=== PATIENT | male | born 1980 | race Caucasian/White ===

== ENCOUNTER 2016-06-29 10:53 | Emergency (ER) | payer SELFPAY ==
[~2016-06-29] VITALS: Ht 182.9 cm; Wt 73.2 kg
[~2016-06-29 10:53] MED LIST: ATIVAN 0.50.5 MG/TAB PO; PHENERGAN 25 TA25 MG PO; SUBOXONE 8 MG-21 TAB PO; SUBOXONE 8 MG-21 TAB SL; [UNRECOGNIZED DRUG - OTHER]
[2016-06-29 10:57] VITALS: BP 135/103; PULSE 120; TEMP 98.3
== END 2016-06-29 13:37 | disposition left against medical advice (07) ==
LOC: COL.ER 10:53
DX: F19.159 Other psychoactive substance abuse with psychoactive substance-induced psychotic disorder, unspecified (principal); F10.159 Alcohol abuse with alcohol-induced psychotic disorder, unspecified; Y90.9 Presence of alcohol in blood, level not specified

== ENCOUNTER → 2020-11-25 | Emergency (ER) | payer SELFPAY ==
[~2020-11-25] MED LIST changes: +LIBRIUM 25M25 MG/CAP PO; +PRILOSEC 20MG20 MG PO
== END ==
LOC: COL.ER 18:10
DX: Z13.39 Encounter for screening examination for other mental health and behavioral disorders (principal)

== ENCOUNTER 2020-12-01 12:50 | Emergency (ER) | payer SELFPAY ==
[~2020-12-01] VITALS: Ht 182.9 cm; Wt 64.5 kg
[~2020-12-01 12:50] MED LIST changes: -LIBRIUM 25M25 MG/CAP PO; -PRILOSEC 20MG20 MG PO
[2020-12-01 13:26] LABS: BASO # 0.1 (0.0-0.2); BASO % 1.1 % (0.0-2.0); EOS # 0.2 (0.0-0.7); EOS % 4.4 % (0-4.0); GRAN # 2.1 (1.4-6.5); GRAN % 47.1 % (42.2-75.2); HEMATOCRIT 42.6 % (42.0-52.0); HEMOGLOBIN 14.5 g/dl (13.5-18.0); LYMPH # 1.7 (1.2-3.4); LYMPH % 37.9 % (20.0-51.0); MEAN CELL VOLUME 96 fl (80.0-100.0); MEAN CORPUSCULAR HEMOGLOBIN 33 pg (27.0-31.0); MEAN CORPUSCULAR HGB CONC 34 g/dl (33.0-37.0); MEAN PLATELET VOLUME 10.3 fl (7.4-10.4); MONO # 0.4 (0.1-0.6); MONO % 9.3 % (1.7-9.3); PLATELET COUNT 100 K/mm3 (130-400); RED BLOOD COUNT 4.43 M/mm3 (4.20-5.60); REDCELL DISTRIBUTION WIDTH-CV 12.4 % (11.5-14.5)
[2020-12-01 14:04] LABS: ALBUMIN 4.1 gm/dL (3.5-5.0); BILIRUBIN,TOTAL 0.9 mg/dL (0.0-1.0); CALCIUM 8.3 mg/dL (8.4-10.2); CREATININE, serum 0.64 (0.66-1.25); POTASSIUM 3.8 mmol/L (3.4-5.0); TOTAL PROTEIN 7.1 gm/dL (6.4-8.2)
[2020-12-01] MEDS ORDERED: LIBRIUM 25M25 MG/CAP PO (15:32)
[2020-12-01 17:28] LABS: COLLECTION METHOD CLEAN CATCH
[2020-12-01 17:35] LABS: PH 7 (5-8); SQUAMOUS EPITHELIAL None Seen /hpf; URINE APPEARANCE Clear; URINE BACTERIA None Seen /hpf; URINE BILIRUBIN Negative (NEGATIVE); URINE BLOOD Negative (NEGATIVE); URINE COLOR Yellow; URINE GLUCOSE Negative (NEGATIVE); URINE KETONE Negative (NEGATIVE); URINE LEUKOCYTE ESTERASE Negative (NEGATIVE); URINE NITRATE Negative (NEGATIVE); URINE PROTEIN(semi-quant) Negative (NEGATIVE); URINE RBC 0-2 /hpf; URINE UROBILINOGEN Negative (NEGATIVE)
[2020-12-01 17:45] LABS: TRICYCLIC ANTIDEPRESS URINE NEGATIVE
[2020-12-02 03:45] VITALS: BP 131/99; PULSE 98; TEMP 96.8
== END 2020-12-02 03:41 | disposition home or self-care (01) ==
LOC: COL.ER 12:50
PROVIDERS: Nurse Practitioner Primary Care
DX: F10.239 Alcohol dependence with withdrawal, unspecified (principal); F17.210 Nicotine dependence, cigarettes, uncomplicated; Y90.8 Blood alcohol level of 240 mg/100 ml or more
CPT/HCPCS: C9113; J2060; J7030

== ENCOUNTER 2021-03-17 15:20 | Emergency (ER) | payer OTHER ==
[~2021-03-17] VITALS: Ht 182.9 cm; Wt 65.9 kg
[~2021-03-17 15:20] MED LIST changes: +LIBRIUM 25M25 MG/CAP PO
[2021-03-17] MEDS ORDERED: PRILOSEC 20MG20 MG PO (15:51)
[2021-03-17 15:52] VITALS: TEMP 97.3
[2021-03-17 17:03] LABS: BASO # 0.1 (0.0-0.2); EOS # 0.3 (0.0-0.7); EOS % 5.2 % (0-4.0); GRAN # 2.2 (1.4-6.5); GRAN % 46.4 % (42.2-75.2); HEMATOCRIT 41.5 % (42.0-52.0); HEMOGLOBIN 14.4 g/dl (13.5-18.0); LYMPH # 1.8 (1.2-3.4); LYMPH % 37.4 % (20.0-51.0); MEAN CELL VOLUME 94 fl (80.0-100.0); MEAN CORPUSCULAR HEMOGLOBIN 33 pg (27.0-31.0); MEAN CORPUSCULAR HGB CONC 35 g/dl (33.0-37.0); MEAN PLATELET VOLUME 10.4 fl (7.4-10.4); MONO # 0.5 (0.1-0.6); MONO % 9.8 % (1.7-9.3); PLATELET COUNT 128 K/mm3 (130-400); RED BLOOD COUNT 4.42 M/mm3 (4.20-5.60); REDCELL DISTRIBUTION WIDTH-CV 12.1 % (11.5-14.5)
[2021-03-17 17:11] LABS: ALANINE AMINOTRANSFERASE 47 U/L (4-49); ALBUMIN 4.4 gm/dL (3.5-5.0); ALKALINE PHOSPHATASE 63 U/L (50-136); ANION GAP 10 mmol/L (7-16); AST,SGOT 96 U/L (15-37); BILIRUBIN,TOTAL 0.4 mg/dL (0.0-1.0); BLOOD UREA NITROGEN 13 mg/dL (9-20); C-REACTIVE PROTEIN < 0.5 mg/dL (0.0-0.9); CALCIUM 8.5 mg/dL (8.4-10.2); CARBON DIOXIDE 27 mmol/L (22-30); CHLORIDE 106 mmol/L (98-107); CREATININE, serum 1.06 (0.66-1.25); GLUCOSE 112 mg/dL (74-106); LIPASE 407 U/L (23-300); POTASSIUM 3.5 mmol/L (3.4-5.0); SODIUM 142 mmol/L (137-145); TOTAL PROTEIN 7.2 gm/dL (6.4-8.2)
[2021-03-17 19:14] LABS: COLLECTION METHOD CLEAN CATCH
[2021-03-17 19:22] LABS: PH 7 (5-8); SQUAMOUS EPITHELIAL None Seen /hpf; URINE APPEARANCE Cloudy; URINE BACTERIA Rare /hpf; URINE BILIRUBIN Negative (NEGATIVE); URINE BLOOD Negative (NEGATIVE); URINE COLOR Yellow; URINE GLUCOSE Negative (NEGATIVE); URINE KETONE Negative (NEGATIVE); URINE LEUKOCYTE ESTERASE Negative (NEGATIVE); URINE NITRATE Negative (NEGATIVE); URINE PROTEIN(semi-quant) Negative (NEGATIVE); URINE RBC 0-2 /hpf; URINE UROBILINOGEN Negative (NEGATIVE)
[2021-03-17 21:14] VITALS: BP 125/88; PULSE 74
== END 2021-03-17 21:16 | disposition home or self-care (01) ==
LOC: COL.ER 15:20
PROVIDERS: Nurse Practitioner
DX: F10.10 Alcohol abuse, uncomplicated (principal); F17.200 Nicotine dependence, unspecified, uncomplicated; Y90.8 Blood alcohol level of 240 mg/100 ml or more
CPT/HCPCS: J2060; J3411; J3475; J7030; Q9967

== ENCOUNTER 2021-10-13 09:13 | Emergency (ER) | payer SELFPAY ==
[~2021-10-13] VITALS: Ht 182.9 cm; Wt 66.4 kg
[~2021-10-13 09:13] MED LIST changes: +PRILOSEC 20MG20 MG PO
[2021-10-13 09:14] VITALS: TEMP 98.2
[2021-10-13 10:05] LABS: BASO # 0.1 K/mm3 (0.0-0.2); BASO % 2.5 % (0.0-2.0); EOS # 0.2 K/mm3 (0.0-0.7); EOS % 4.8 % (0.0-4.0); GRAN % 45.1 % (42.2-75.2); HEMATOCRIT 43.8 % (42.0-52.0); HEMOGLOBIN 15.1 g/dl (13.5-18.0); LYMPH # 1.5 K/mm3 (1.2-3.4); LYMPH % 33.5 % (20.0-51.0); MEAN CELL VOLUME 95 fl (80.0-100.0); MEAN CORPUSCULAR HEMOGLOBIN 33 pg (27-31); MEAN CORPUSCULAR HGB CONC 35 g/dl (33.0-37.0); MEAN PLATELET VOLUME 10.5 fl (7.4-10.4); MONO # 0.6 K/mm3 (0.1-0.6); MONO % 13.9 % (1.7-9.3); PLATELET COUNT 117 K/mm3 (130-400); RED BLOOD COUNT 4.61 M/mm3 (4.20-5.60)
[2021-10-13 10:13] LABS: ALBUMIN 4.6 gm/dL (3.5-5.0); BILIRUBIN,TOTAL 0.6 mg/dL (0.2-1.2); CALCIUM 8.7 mg/dL (8.4-10.2); CREATININE, serum 0.82 mg/dL (0.72-1.25); POTASSIUM 3.6 mmol/L (3.5-4.5)
[2021-10-13 12:56] LABS: COLLECTION METHOD CLEAN CATCH
[2021-10-13 13:12] LABS: AMORPHOUS CRYSTAL Present (NOT PRESENT); MUCOUS Present (NOT PRESENT); PH 7 (5-8); SQUAMOUS EPITHELIAL None Seen /hpf (0-10); URINE APPEARANCE Hazy (CLEAR/HAZY); URINE BACTERIA None Seen /hpf (NONE SEEN); URINE BILIRUBIN Negative (NEGATIVE); URINE BLOOD Negative (NEGATIVE); URINE COLOR Yellow (YELLOW); URINE GLUCOSE Negative (NEGATIVE); URINE KETONE Negative (NEGATIVE); URINE LEUKOCYTE ESTERASE Negative (NEGATIVE); URINE NITRATE Negative (NEGATIVE); URINE PROTEIN(semi-quant) Negative (NEGATIVE); URINE RBC 0-2 /hpf (0-2); URINE UROBILINOGEN Negative (NEGATIVE)
[2021-10-13 13:15] LABS: TRICYCLIC ANTIDEPRESS URINE NEGATIVE
[2021-10-13 13:45] VITALS: BP 120/61; PULSE 80
--- NOTE | 2021-10-13 14:13 | NUR ---
form worker contacted [facility] and confirmed they have a detox bed open. Worker gave the phone to patient and he completed an intake. Patient later advised that he would not need detox at this time. Patient was given phone numbers to [facility] and [facility] for any future desire for detox. Worker collaborated the above information with patient's nurse and provider.
== END 2021-10-13 13:50 | disposition home or self-care (01) ==
LOC: COL.ER 09:13
PROVIDERS: Physician Assistant
DX: F10.129 Alcohol abuse with intoxication, unspecified (principal); F17.200 Nicotine dependence, unspecified, uncomplicated; Y90.8 Blood alcohol level of 240 mg/100 ml or more
CPT/HCPCS: J7030